=== PATIENT | male | born 1995 | race Caucasian/White ===

== ENCOUNTER 2021-11-08 13:31 | Inpatient (IN) | payer MEDICARE, MEDICAID, SELFPAY ==
[2021-11-08 13:43] VITALS: BMI 42.7
[2021-11-08 13:53] VITALS: BP 138/90; PULSE 83; RESP 17; TEMP 36.6; O2SAT 98
[2021-11-08 20:13] VITALS: BP 115/68; PULSE 74; RESP 20; TEMP 36.1; O2SAT 96
[2021-11-08] MEDS: trazodone 100 mg Tablet PO (23:35)
[2021-11-08] MEDS: prazosin 5 mg Capsule PO (23:35)
[2021-11-08] MEDS: lithium carbonate ER 300 mg Tablet 600 MG PO (23:36)
[2021-11-09 06:00] VITALS: BP 120/69; PULSE 87; RESP 18; TEMP 36.3; O2SAT 97
[2021-11-09] MEDS: lithium carbonate 150 mg Capsule PO (08:52)
[2021-11-09] MEDS: venlafaxine ER (24HR) 75 mg Capsule PO (08:52)
[2021-11-09] MEDS: atorvastatin 40 mg Tablet 10 MG PO (08:52)
[2021-11-09] MEDS: venlafaxine ER (24HR) 150 mg Capsule PO (08:53)
[2021-11-09] MEDS: haloperidol 5 mg Tablet 10 MG PO ×2 (08:53→20:42)
[2021-11-09] MEDS: benztropine 1 mg Tablet PO ×2 (08:53→20:41)
--- NOTE | 2021-11-09 08:55 | PC.NURSE ---
refused scheduled Colace, pt stated that's only supposed to be PRN! then pt also refused scheduled Synthroid, said I'm supposed to take it 30 minutes before all my other meds! pt educated to discuss his concerns with physician this morning. pt verbalized understanding.
--- NOTE | 2021-11-09 11:40 | NPU.GN ---
[facility] Topic:Renea Ambrose General Mood of Group: Roni did not attend group and wanted to sleep.
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
[2021-11-09 14:00] VITALS: BP 130/87; PULSE 99; RESP 18; TEMP 36.6; O2SAT 97
[2021-11-09 20:14] VITALS: BP 129/86; PULSE 91; RESP 18; TEMP 36.4; O2SAT 97
[2021-11-09] MEDS: trazodone 100 mg Tablet PO (20:41)
[2021-11-09] MEDS: lithium carbonate ER 300 mg Tablet 600 MG PO (20:41)
[2021-11-09] MEDS: prazosin 5 mg Capsule PO (20:41)
[2021-11-10 06:00] VITALS: BP 111/67; PULSE 79; RESP 18; TEMP 36.4; O2SAT 97
[2021-11-10] MEDS: lithium carbonate 150 mg Capsule 450 MG PO (07:11)
[2021-11-10] MEDS: levothyroxine 88 mcg Tablet PO (07:16)
[2021-11-10] MEDS: venlafaxine ER (24HR) 75 mg Capsule PO (09:51)
[2021-11-10] MEDS: venlafaxine ER (24HR) 150 mg Capsule PO (09:51)
[2021-11-10] MEDS: naltrexone hcl 50 mg Tablet PO (09:51)
[2021-11-10] MEDS: atorvastatin 40 mg Tablet 10 MG PO (09:51)
[2021-11-10] MEDS: benztropine 1 mg Tablet PO ×2 (09:51→20:37)
[2021-11-10] MEDS: haloperidol 5 mg Tablet 10 MG PO ×2 (09:52→20:36)
--- NOTE | 2021-11-10 11:30 | NPU.GN ---
[facility] Topic: Roll The Dice General Mood of Group: Roni did not attend group today.
--- NOTE | 2021-11-10 12:33 | P.NPUPN_ITS ---
Subjective NPU Subjective: He says that he is doing much better. He still has some depression but it is better. The auditory and visual hallucinations have decreased. He attributes it to being away from his living situation that he has not been happy with and stresses him out. He also has been getting rest. He was found in bed at 12:15 PM. Mental Status Exam MSE Comments: This is a 25-year-old man obese male who appears approximately his stated age and is in no acute distress. He was found in bed at 12:30 PM. He woke up easily. He was pleasant and cooperative with the evaluation. He is in hospital scrubs and has fair grooming psychomotor activity is normal. Speech is at a regular rate and rhythm, normal volume, good articulation, not pressured. Alert, oriented X3 Attention and concentration appears to be intact. Memory is intact Mood is depressed but better. Affect is mildly dysphoric. Thought process is logical and goal-directed. Thought content: Reports auditory are improved. He says the voices tell him to kill himself and insult him. No delusions or paranoia are noted. No current suicidal ideation, and no homicidal ideation. Fund of knowledge is diminished. Insight and judgment appear to be poor. Impulse control is poor. Cognition: Patient Appearance: Appropriate Ability to Follow Directions: Excellent Patient Orientation (long list): Person, Place and Name Comprehension Ability: Mild Impairment Hallucination Type: Auditory and Visual Delusion Description: Not Present Thought Process: Logical Affect: Affect Description: [place] and Calm Behavior: Patient Behavior: Cooperative Speech Pattern: Clear Vitals/I&O/Wt Last Vital Signs Temp 97.5 F L 11/10/21 06:00 Pulse 79 11/10/21 06:00 Resp 18 11/10/21 06:00 BP 111/67 11/10/21 06:00 Pulse Ox 97 11/10/21 06:00 Weight last 48 hrs Weight 129.274 kg A&P Assessment and plan (1) Intellectual disability: Status: Acute (2) PTSD (post-traumatic stress disorder): Status: Acute (3) Schizoaffective disorder, bipolar type: Status: Acute (4) Borderline personality disorder: Status: Acute Plan This is a 25-year old male who reports past diagnosis of PTSD, schizoaffective disorder, alcohol abuse, ADHD and borderline personality disorder who comes in with increased auditory hallucinations and suicidal ideation after having to go back to a [facility]. he says that he does not have a guardian. Plan: 1. Continue current medication. 2. Continue every 15 minute checks for safety. 3. Encourage individual, group and milieu therapies. 4. Encourage sober living treatment after discharge at the highest level of care to which he is willing to commit. 5. We will monitor for safety for himself in the community prior to discharge. Involuntary Hold Information 96 Hour Hold: 96 Hour Involuntary Admission: No Attestations NPU Medical Necessity Statement*: Inpatient hospitalization is medically necessary and the clinically appropriate intervention at this time. We will initiate medications and make changes as indicated. Coding Level of Care Code Acute News Videotape Editor for [facility] Fwd Diagnoses Intellectual disability F79 PTSD (post-traumatic stress disorder) F43.10 Schizoaffective disorder, bipolar type F25.0 Borderline personality disorder F60.3
[2021-11-10 14:00] VITALS: BP 136/80; PULSE 95; RESP 17; TEMP 36.6; O2SAT 93
[2021-11-10] MEDS: lithium carbonate ER 300 mg Tablet 600 MG PO (20:36)
[2021-11-10] MEDS: prazosin 5 mg Capsule PO (20:36)
[2021-11-10] MEDS: trazodone 100 mg Tablet PO (20:37)
[2021-11-10 21:06] VITALS: BP 132/91; PULSE 99; RESP 20; TEMP 36.4; O2SAT 95
[2021-11-11 06:00] VITALS: BP 136/94; PULSE 91; RESP 20; TEMP 36.1; O2SAT 97
[2021-11-11] MEDS: acetaminophen 325 mg Tablet 650 MG PO (07:30)
[2021-11-11] MEDS: levothyroxine 88 mcg Tablet PO (09:38)
[2021-11-11] MEDS: lithium carbonate 150 mg Capsule 450 MG PO (09:38)
[2021-11-11] MEDS: venlafaxine ER (24HR) 150 mg Capsule PO (09:39)
[2021-11-11] MEDS: naltrexone hcl 50 mg Tablet PO (09:39)
[2021-11-11] MEDS: docusate sodium 100 mg Capsule PO (09:39)
[2021-11-11] MEDS: venlafaxine ER (24HR) 75 mg Capsule PO (09:39)
[2021-11-11] MEDS: atorvastatin 40 mg Tablet 10 MG PO (09:39)
[2021-11-11] MEDS: benztropine 1 mg Tablet PO ×2 (10:50→20:54)
[2021-11-11] MEDS: haloperidol 5 mg Tablet 10 MG PO ×2 (10:50→20:54)
--- NOTE | 2021-11-11 11:37 | NPU.GN ---
[facility] Topic:Coping Mechanisms Activity General Mood of Group: Roni did attend and participate in group today. Hygiene was ok and patient was pleasant and social with others in group.
--- NOTE | 2021-11-11 11:48 | P.NPUPN_ITS ---
Subjective NPU Subjective: He says that he is doing much better. He is no longer depressed.. The auditory and visual hallucinations have decreased. He attributes it to being away from his living situation that he has not been happy with and stresses him out. He also has been getting rest. He was found in in the day room at 11 AM Mental Status Exam MSE Comments: This is a 25-year-old man obese male who appears approximately his stated age and is in no acute distress. He was found in in the day room sitting by himself at 11 AM. He was pleasant and cooperative with the evaluation. He is in hospital scrubs and has fair grooming psychomotor activity is normal. Speech is at a regular rate and rhythm, normal volume, good articulation, not pressured. Alert, oriented X3 Attention and concentration appears to be intact. Memory is intact Mood is good. Affect is euthymic Thought process is logical and goal-directed. Thought content: Reports auditory are improved. No delusions or paranoia are noted. No current suicidal ideation, and no homicidal ideation. Fund of knowledge is diminished. Insight and judgment appear to be poor. Impulse control is poor. Cognition: Patient Appearance: Appropriate Ability to Follow Directions: Excellent Patient Orientation (long list): Person, Place and Name Comprehension Ability: Mild Impairment Hallucination Type: None Delusion Description: Not Present Thought Process: Logical Affect: Affect Description: Appropriate Behavior: Patient Behavior: Appropriate Speech Pattern: Appropriate Vitals/I&O/Wt Last Vital Signs Temp 97.0 F L 11/11/21 06:00 Pulse 91 11/11/21 06:00 Resp 20 H 11/11/21 06:00 BP 136/94 11/11/21 06:00 Pulse Ox 97 11/11/21 06:00 A&P Assessment and plan (1) Intellectual disability: Status: Acute (2) PTSD (post-traumatic stress disorder): Status: Acute (3) Schizoaffective disorder, bipolar type: Status: Acute (4) Borderline personality disorder: Status: Acute Plan This is a 25-year old male who reports past diagnosis of PTSD, schizoaffective disorder, alcohol abuse, ADHD and borderline personality disorder who comes in with increased auditory hallucinations and suicidal ideation after having to go back to a residential. he says that he does not have a guardian. Plan: 1. Continue current medication. 2. Continue every 15 minute checks for safety. 3. Encourage individual, group and milieu therapies. 4. Encourage sober living treatment after discharge at the highest level of care to which he is willing to commit. 5. We will monitor for safety for himself in the community prior to discharge. Involuntary Hold Information 96 Hour Hold: 96 Hour Involuntary Admission: No Attestations NPU Medical Necessity Statement*: Inpatient hospitalization is medically necessary and the clinically appropriate intervention at this time. We will initiate medications and make changes as indicated. Coding Level of Care Code Acute Digital Music Instructor for [facility] Fwd Diagnoses Intellectual disability F79 PTSD (post-traumatic stress disorder) F43.10 Schizoaffective disorder, bipolar type F25.0 Borderline personality disorder F60.3
[2021-11-11 14:00] VITALS: BP 127/87; PULSE 100; RESP 18; TEMP 36.4; O2SAT 96
[2021-11-11] MEDS: prazosin 5 mg Capsule PO (20:54)
[2021-11-11] MEDS: lithium carbonate ER 300 mg Tablet 600 MG PO (20:54)
[2021-11-11] MEDS: trazodone 100 mg Tablet PO (20:54)
[2021-11-11 21:07] VITALS: BP 119/75; PULSE 81; RESP 20; TEMP 36.2; O2SAT 97
[2021-11-12 06:00] VITALS: BP 135/74; PULSE 78; RESP 20; TEMP 36.4; O2SAT 97
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
[2021-11-12 09:05] VITALS: BP 135/74; PULSE 78; RESP 20; TEMP 36.4; O2SAT 97
[2021-11-12] MEDS: venlafaxine ER (24HR) 75 mg Capsule PO (09:46)
[2021-11-12] MEDS: lithium carbonate 150 mg Capsule 450 MG PO (09:46)
[2021-11-12] MEDS: atorvastatin 40 mg Tablet 10 MG PO (09:46)
[2021-11-12] MEDS: levothyroxine 88 mcg Tablet PO (09:46)
[2021-11-12] MEDS: naltrexone hcl 50 mg Tablet PO (09:46)
[2021-11-12] MEDS: benztropine 1 mg Tablet PO (09:47)
[2021-11-12] MEDS: venlafaxine ER (24HR) 150 mg Capsule PO (09:47)
[2021-11-12] MEDS: haloperidol 5 mg Tablet 10 MG PO (09:47)
--- NOTE | 2021-11-12 10:12 | DCPLANNER ---
IMM completed and given to pt. Pt was notified of rights.
[2021-11-12 13:55] VITALS: BP 113/76; PULSE 94; RESP 16; TEMP 36.6; O2SAT 97
--- NOTE | 2021-11-12 16:58 | PC.NURSE ---
DC TEAM HAS DETERMINED THAT PT IS STABLE TO DC. RETURNING TO ASSISTED VIA MEDICAID RIDE. ALL PERSONAL BELONGINGS TO BE RETURNED TO PT AT DISCHARGE. DENIES SI/HI. MEDICATIONS THAT WERE CHANGED CALLED TO PHARMACY.
== END 2021-11-12 17:10 | disposition home or self-care (01) | DRG 885 ==
PROVIDERS: Admitting Provider Psychiatry & Neurology Psychiatry; Visit Provider Psychiatry & Neurology Psychiatry
DX: F25.0 Schizoaffective disorder, bipolar type (principal); R45.851 Suicidal ideations; Z68.41 Body mass index [BMI] 40.0-44.9, adult; F41.9 Anxiety disorder, unspecified; G40.909 Epilepsy, unspecified, not intractable, without status epilepticus; F10.11 Alcohol abuse, in remission; F43.10 Post-traumatic stress disorder, unspecified; F90.9 Attention-deficit hyperactivity disorder, unspecified type; F60.3 Borderline personality disorder; E66.9 Obesity, unspecified; F79 Unspecified intellectual disabilities
CPT/HCPCS: 97150; 97165